=== PATIENT | male | born 1955 | race Caucasian/White ===

== ENCOUNTER 2024-07-30 07:04 | Emergency (ER) | payer BC, SELFPAY ==
[2024-07-30 08:53] LABS: Specific Gravity 1.023 (1.005-1.030); Sqamous Epithelial <5 /HPF (None Seen); Urine Bacteria None Seen /HPF (<20); Urine Bilirubin NEGATIVE (Negative); Urine Blood Negative (Negative); Urine Clarity Clear (Clear); Urine Color Yellow (Yellow); Urine Culture Reflex Order NOT NEEDED; Urine Glucose NEGATIVE (Negative); Urine Ketones NEGATIVE (Negative); Urine Microscopic Reflex YN ORDER UMIC; Urine Mucus Slight /HPF (None Seen); Urine Nitrite NEGATIVE (Negative); Urine Protein TRACE (Negative); Urine RBC None Seen /HPF (None Seen); Urine Urobilinogen 1+ (Normal); Urine WBC <5 /HPF (<5)
--- NOTE | 2024-07-30 08:55 | RAD REPORT ---
EXAMINATION: ONE VIEW CHEST XR CLINICAL INDICATION: Male, 69 years old.,PAIN TECHNIQUE: Frontal chest projection is submitted. Examination is limited by patient positioning and t echnique. COMPARISON: 08/21/2019 FINDINGS: The lungs are diffusely emphysematous but grossly clear. No pneumothorax or sizable effusion. The he art is normal in size. Mediastinal contours are unremarkable. IMPRESSION: No acute intrathoracic abnormalities.
[2024-07-30] MEDS ORDERED: NA CHLORIDE 0.9% 1,000 ML ONE (09:06)
[2024-07-30 09:10] LABS: PT Prothrombin Time 11.8 SECONDS (10.0-13.0); Protime INR 1.04
[2024-07-30 09:15] LABS: Albumin 2.8 g/dL (3.4-5.0); Albumin/Globulin Ratio 0.5 (1.1-1.8); Anion Gap 11.4 mEq/L (5.0-15.0); Bilirubin Direct 0.2 mg/dL (0-0.2); Bilirubin Indirect, Calculated 0.3 mg/dL (0.2-0.8); Bilirubin Total 0.5 mg/dL (0.2-1.0); Globulin 5.5 g/dL (2.3-3.5); Magnesium 1.9 mg/dL (1.6-2.4); Potassium 4.4 mEq/L (3.5-5.1); Protein, Total 8.3 g/dL (6.4-8.2); Troponin High Sensitivity 40.3 pg/mL (<58.9)
[2024-07-30 09:20] LABS: Absolute Eosinophils 0.1 K/uL (0-0.5); Absolute Lymphocytes (CBC) 2.2 K/uL (0.7-4.9); Absolute Monocytes 14.8 K/uL (0.1-1.3); Absolute Neutrophil 2.2 K/uL (1.8-8.0); Basophils % 0.1 % (0-1.3); Eosinophils % 0.3 % (0-4.4); Hematocrit 28.6 % (39.6-49.0); Hemoglobin 9.4 g/dL (13.6-17.9); Lymphocytes % 11.4 % (15.3-44.8); MCH 23.1 pg (27.0-35.0); MCHC 32.8 g/dL (32.0-36.0); MCV 70.5 fL (80-100); MPV 6.2 fL (7.6-11.3); Monocytes % 76.6 % (3.3-12.3); Neutrophils % 11.6 % (41.7-73.7); Nucleated RBC Absolute Count 0.1 (0-0); Nucleated Red Blood Cells % 0.5 % (0-0); Platelets 153 thou/uL (152-406); RBC Red Blood Cell Count 4.05 M/uL (4.33-5.43); Red Cell Distribution Width 21.4 % (12.1-15.2)
[2024-07-30 10:08] LABS: Atypical Lymphocytes 87 %; Differential Total Cells Count 100; Lymphocytes 3 % (15-42); Segmented Neutrophils 10 % (40-80)
[2024-07-30 10:09] LABS: Anisocytosis 1+; Blood Morphology Comment NOTED (NOT SEEN); Hypochromasia 1+; Microcytosis 2+; Ovalocytes 1+; Platelet Estimate ADEQ
--- NOTE | 2024-07-30 10:30 | RAD REPORT ---
EXAMINATION: CT Abdomen Pelvis W Contrast CLINICAL INDICATION: Male, 69 years old. ABD PAIN TECHNIQUE: CT abdomen and pelvis was performed, after the administration of IV contrast, as per depar tment protocol. Axial, sagittal and coronal reconstructions were obtained. One or more of the following dose reduction techniques were used: Automated exposure control, adjustment of the mA and k V according to patient size, and iterative reconstruction. Unless otherwise specified, incidental findings do not require dedicated imaging follow-up. COMPARISON: 08/08/2016 FINDINGS: LOWER CHEST: The visualized lung bases are clear. LIVER: Normal in size and contour. No focal lesion. BILIARY SYSTEM: No suspicious abnormalities. SPLEEN: Marked splenic enlargement since the prior exam, measuring up to 31 cm in long axis. Wedge-sh aped subcapsular region of hypoattenuation near the inferior pole measuring 6.9 x 6.1 cm, may represent a region of infarct. Marked mass effect upon the adjacent bowel, with displacement of the l eft kidney anterior to the aorta. PANCREAS: No mass, ductal dilation, or geovanny-pancreatic fluid. ADRENALS: Normal; no mass. KIDNEYS: 1-2 mm right superior pole nonobstructing calculus. Mass effect upon the left kidney as abov e. Normal size and contour otherwise. No hydronephrosis. URINARY BLADDER: Unremarkable. GASTROINTESTINAL TRACT: No evidence of free air, bowel obstruction or abscess. Mild free fluid alba g the left lower quadrant and pelvis. APPENDIX: Normal appendix. LYMPH NODES: No lymphadenopathy. MUSCULOSKELETAL: Grade 1 spondylolisthesis at L4-5. No other acute or suspicious osseous abnormality. ADDITIONAL FINDINGS: None. IMPRESSION: Marked splenomegaly measuring up to 31 cm in long axis. Wedge-shaped subcapsular 6.9 cm region of hyp oattenuation near the lower pole, suggesting a region of infarct. Mild free left lower quadrant and pelvic ascites. Nonobstructing 1-2 mm right superior pole renal calculus.
--- NOTE | 2024-07-30 10:48 | EDPHYS ---
Physician Documentation [facility] Name: Eugenia Méndez Age: 69 yrs Sex: Male : 1955 Arrival Date: 07/30/2024 Time: 07:04 Bed DX4 Private MD: ED Physician Laith Heaton HPI: 07/30 07:58 This 69 yrs old Male presents to ER via Ambulatory with complaints of SIDE quique PAIN. 07:58 The patient presents with abdominal pain in the left lower quadrant, abdominal quique distention in the epigastric area, in the upper abdomen. Onset: The symptoms/episode began/occurred 2 day(s) ago. The symptoms do not radiate. Associated signs and symptoms: none. The symptoms are described as crampy, dull. Modifying factors: The symptoms are alleviated by nothing, the symptoms are aggravated by movement, pressure. Severity of pain: At its worst the pain was moderate in the emergency department the pain is unchanged. The patient has not experienced similar symptoms in the past. Historical: - Allergies: 07:16 No Known Allergies; ll1 - PMHx: 07:16 Chronic obstructive lung disease; Diabetes mellitus; A fib; ll1 - PSHx: 07:17 testicular CA with removal; ll1 - Immunization history:: Adult Immunizations. - Infectious Disease History:: Denies. - Social history:: Smoking status: Patient reports the use of cigarette tobacco products, smokes .25 packs per day. ROS: 07:58 Constitutional: Negative for fever, chills, and weight loss, Eyes: Negative for injury, quique pain, redness, and discharge, ENT: Negative for injury, pain, and discharge, Neck: Negative for injury, pain, and swelling, Cardiovascular: Negative for chest pain, palpitations, and edema, Respiratory: Negative for shortness of breath, cough, wheezing, and pleuritic chest pain, Back: Negative for injury and pain, : Negative for injury, bleeding, discharge, and swelling, MS/Extremity: Negative for injury and deformity, Skin: Negative for injury, rash, and discoloration, Neuro: Negative for headache, weakness, numbness, tingling, and seizure, 07:58 Abdomen/GI: Positive for abdominal pain, of the left lower quadrant, Exam: 07:58 Constitutional: This is a well developed, well nourished patient who is awake, alert, quique and in no acute distress. Head/Face: Normocephalic, atraumatic. Eyes: Pupils equal round and reactive to light, extra-ocular motions intact. Lids and lashes normal. Conjunctiva and sclera are non-icteric and not injected. Cornea within normal limits. Periorbital areas with no swelling, redness, or edema. ENT: Nares patent. No nasal discharge, no septal abnormalities noted. Tympanic membranes are normal and external auditory canals are clear. Oropharynx with no redness, swelling, or masses, exudates, or evidence of obstruction, uvula midline. Mucous membranes moist. Neck: Trachea midline, no thyromegaly or masses palpated, and no cervical lymphadenopathy. Supple, full range of motion without nuchal rigidity, or vertebral point tenderness. No Meningismus. Chest/axilla: Normal chest wall appearance and motion. Nontender with no deformity. No lesions are appreciated. Cardiovascular: Regular rate and rhythm with a normal S1 and S2. No gallops, murmurs, or rubs. Normal PMI, no JVD. No pulse deficits. Respiratory: Lungs have equal breath sounds bilaterally, clear to auscultation and percussion. No rales, rhonchi or wheezes noted. No increased work of breathing, no retractions or nasal flaring. Back: No spinal tenderness. No costovertebral tenderness. Full range of motion. Male : Normal genitalia with no discharge or lesions. Skin: Warm, dry with normal turgor. Normal color with no rashes, no lesions, and no evidence of cellulitis. MS/ Extremity: Pulses equal, no cyanosis. Neurovascular intact. Full, normal range of motion., bilateral aka Neuro: Awake and alert, GCS 15, oriented to person, place, time, and situation. Cranial nerves II-XII grossly intact. Motor strength 5/5 in all extremities. Sensory grossly intact. Cerebellar exam normal. Normal gait. Psych: Awake, alert, with orientation to person, place and time. Behavior, mood, and affect are within normal limits. 07:58 Abdomen/GI: Inspection: distension, that is mild, Bowel sounds: normal, in all quadrants, Palpation: moderate abdominal tenderness, in the left lower quadrant, Liver: no appreciated palpable abnormalities, Hernia: not appreciated, Vital Signs: 07:18 BP 115 / 81; Pulse 99; Resp 17; Pulse Ox 99% ; Weight 68.95 kg; Height 6 ft. 1 in. ; ll1 Pain 8/10; 13:46 BP 121 / 71; Pulse 89; Resp 18; Temp 98; Pulse Ox 98% ; ll1 07:18 Body Mass Index 20.05 (68.95 kg, 185.42 cm) ll1 07:18 Pain Scale: Adult ll1 MDM: 07:13 Medical Screening Exam initiated quique 08:00 Differential diagnosis: bowel obstruction, diverticulitis, gastritis, non-specific abd quique pain, pancreatitis, Ureterolithiasis. Data reviewed: vital signs, nurses notes, lab test result(s), EKG, radiologic studies, CT scan, plain films. Consideration of Admission/Observation Patient was admitted/placed on observation. Escalation of care including admission/observation considered. I considered the following discharge prescriptions or medication management in the emergency department Medications were administered in the Emergency Department. See MAR. Independent interpretation of the following test(s) in the Emergency Department EKG: See my EKG interpretation above. Test considered but Not performed: Ultrasound no abd usg. Care significantly affected by the following chronic conditions: Diabetes, Chronic Obstructive Pulmonary Disease, a fib. 07/30 07:54 Order name: Basic Metabolic Panel; Complete Time: 10:45 quique 07/30 07:54 Order name: CBC with Diff; Complete Time: 10:45 quique 07/30 07:54 Order name: LFT's; Complete Time: 10:45 quique 07/30 07:54 Order name: Magnesium; Complete Time: 10:45 quique 07/30 07:54 Order name: NT PRO-BNP; Complete Time: 10:45 quique 07/30 07:54 Order name: PT-INR; Complete Time: 10:45 quique 07/30 07:54 Order name: Troponin HS; Complete Time: 10:45 quique 07/30 07:54 Order name: Urinalysis w/ reflexes; Complete Time: 10:45 quique 07/30 07:54 Order name: Lipase; Complete Time: 10:45 quique 07/30 10:09 Order name: Manual Differential; Complete Time: 10:45 EDMS 07/30 07:54 Order name: XRAY Chest (1 view); Complete Time: 10:45 quique 07/30 07:54 Order name: CT Abd/Pelvis - IV Contrast Only; Complete Time: 10:45 quique 07/30 07:54 Order name: EKG; Complete Time: 07:55 quique 07/30 07:54 Order name: EKG - Nurse/Tech; Complete Time: 08:46 quique 07/30 07:54 Order name: IV Saline Lock; Complete Time: 08:37 quique 07/30 07:54 Order name: Labs collected and sent; Complete Time: 08:37 quique Administered Medications: 09:15 Drug: NS 0.9% IV 1000 ml IV at 1000 ml once; to be given as a bolus over 60 minutes ll1 Route: IV; Rate: 1000 ml; Site: right antecubital; 13:46 Follow up: Response: No adverse reaction; IV Status: Completed infusion; IV Intake: ll1 1000ml 12:31 Drug: morphine IVP or IV 2 mg IVP once over 4 mins Route: IVP; Infused Over: 4 mins; ld1 Site: right antecubital; 13:47 Follow up: Response: No adverse reaction; Pain is decreased; RASS: Alert and Calm (0) ll1 12:31 Drug: Ondansetron IVP 4 mg IVP once; over 2 minutes Route: IVP; Site: right antecubital;ld1 13:47 Follow up: Response: No adverse reaction; Nausea is decreased ll1 Disposition Summary: 07/30/24 10:48 Transfer Ordered Notes: Reason: Higher level of care quique Condition: Fair quique Problem: new quique Symptoms: have improved quique Transfer Location: [facility]-System(07/30/24 11:37) quique Accepting Physician: to medicine(07/30/24 13:47) ll1 Diagnosis - Abdominal pain, Generalized quique - Elevated white blood cell count quique - 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 EDMS EDMS 07:55 07:54 CBC+H.LAB.BRZ ordered. EDMS EDMS 07:55 07:54 HEPATIC FUNCTION+C.LAB.BRZ ordered. EDMS EDMS 07:55 07:54 MAGNESIUM+C.LAB.BRZ ordered. EDMS EDMS 07:55 07:54 PROBNP+C.LAB.BRZ ordered. EDMS EDMS 07:55 07:54 PROTIME (+INR)+COAG.LAB.BRZ ordered. EDMS EDMS 07:55 07:54 Troponin High Sensitivity+C.LAB.BRZ ordered. EDMS EDMS 07:55 07:54 Urinalysis+U.LAB.BRZ ordered. EDMS EDMS 07:55 07:54 LIPASE+C.LAB.BRZ ordered. EDMS EDMS 10:53 10:48 to medicine quique quique 11:37 10:48 [facility] quique quique 11:37 10:48 Splenomegaly, not elsewhere classified - 31 cm quique quique 11:37 10:53 to medicine quique quique 11:37 11:37 to medicine quique quique 13:47 11:37 to medicine [facility]1
--- NOTE | 2024-07-30 10:48 | ER ---
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 Slight dysuria with ll1 frequency noted. No fever. Coronavirus screen: Client denies travel out of the [place] in the last 14 days. At this time, the client does not indicate any symptoms associated with coronavirus-19. Ebola Screen: Patient denies travel to an Ebola-affected area in the 21 days before illness onset. Initial Sepsis Screen: Does the patient meet any 2 criteria? No. Patient's initial sepsis screen is negative. Does the patient have a suspected source of infection? No. Patient's initial sepsis screen is negative. Risk Assessment: Do you want to hurt yourself or someone else? Patient reports no desire to harm self or others. Onset of symptoms was July 28, 2024. 07:18 Method Of Arrival: Ambulatory ll1 07:18 Acuity: GIOVANNI 3 ll1 Triage Assessment: 07:18 General: Appears uncomfortable, Behavior is calm, cooperative, appropriate for age. ll1 Pain: Complains of pain in left lower quadrant Quality of pain is described as aching, crampy. GI: Reports lower abdominal pain. Historical: - Allergies: 07:16 No Known Allergies; ll1 - PMHx: 07:16 Chronic obstructive lung disease; Diabetes mellitus; A fib; ll1 - PSHx: 07:17 testicular CA with removal; ll1 - Immunization history:: Adult Immunizations. - Infectious Disease History:: Denies. - Social history:: Smoking status: Patient reports the use of cigarette tobacco products, smokes .25 packs per day. Screenin:35 [facility] ED Fall Risk Assessment (Adult) History of falling in the last 3 months, ll1 including since admission No falls in past 3 months (0 pts) Confusion or Disorientation No (0 pts) Intoxicated or Sedated No (0 pts) Impaired Gait Yes (1 pt) Mobility Assist Device Used Yes (1 pt) Altered Elimination No (0 pt) Score/Fall Risk Level 0 - 2 = Low Risk Maintained a safe environment, Hourly rounding (assess needs \T\ fall precautionary measures) done. Abuse screen: Denies threats or abuse. Nutritional screening: No deficits noted. Tuberculosis screening: No symptoms or risk factors identified. Assessment: 13:46 Reassessment: No changes from previously documented assessment. Patient and/or family ll1 updated on plan of care and expected duration. Pain level reassessed. Vital Signs: 07:18 BP 115 / 81; Pulse 99; Resp 17; Pulse Ox 99% ; Weight 68.95 kg; Height 6 ft. 1 in. ; ll1 Pain 8/10; 13:46 BP 121 / 71; Pulse 89; Resp 18; Temp 98; Pulse Ox 98% ; ll1 07:18 Body Mass Index 20.05 (68.95 kg, 185.42 cm) ll1 07:18 Pain Scale: Adult ll1 ED Course: 07:13 Patient arrived in ED. gm2 07:13 Laith Heaton MD is Attending Physician. quique 07:19 Triage completed. ll1 07:19 Arm band placed on. ll1 08:16 XRAY Chest (1 view) In Process Unspecified. EDMS 08:37 Lipase Sent. bc6 08:37 Basic Metabolic Panel Sent. bc6 08:37 CBC with Diff Sent. bc6 08:37 LFT's Sent. bc6 08:37 Magnesium Sent. bc6 08:37 NT PRO-BNP Sent. bc6 08:37 PT-INR Sent. bc6 08:37 Troponin HS Sent. bc6 08:37 Initial lab(s) drawn, by ma, sent to lab. Inserted saline lock: 20 gauge in right bc6 antecubital area, using aseptic technique. Blood collected. Flushed with 10 mL NS. 08:46 Urinalysis w/ reflexes Sent. bc6 09:43 CT Abd/Pelvis - IV Contrast Only In Process Unspecified. EDMS 12:36 Patient has correct armband on for positive identification. Provided Education on: ER ll1 procedures and process. 12:36 No provider procedures requiring assistance completed. Patient transferred, IV remains ll1 in place. Administered Medications: 09:15 Drug: NS 0.9% IV 1000 ml IV at 1000 ml once; to be given as a bolus over 60 minutes ll1 Route: IV; Rate: 1000 ml; Site: right antecubital; 13:46 Follow up: Response: No adverse reaction; IV Status: Completed infusion; IV Intake: ll1 1000ml 12:31 Drug: morphine IVP or IV 2 mg IVP once over 4 mins Route: IVP; Infused Over: 4 mins; ld1 Site: right antecubital; 13:47 Follow up: Response: No adverse reaction; Pain is decreased; RASS: Alert and Calm (0) ll1 12:31 Drug: Ondansetron IVP 4 mg IVP once; over 2 minutes Route: IVP; Site: right antecubital;ld1 13:47 Follow up: Response: No adverse reaction; Nausea is decreased ll1 Medication: 12:36 VIS not applicable for this client. ll1 Intake: 13:46 IV: 1000ml; Total: 1000ml. ll1 Outcome: 10:48 ER care complete, transfer ordered by MD. lei 12:34 Transferred by ground EMS to [facility], Transfer form completed. ll1 Note: report called to Lillian Rodriguez RN at [facility] 9th floor 12:34 Condition: stable 12:34 Instructed on the need for transfer, 13:47 Patient left the ED. 1 Signatures: Dispatcher [employer] Laith Means MD MD cha Lewis, Lynsay RN RN ll1 Mel Youssef RN RN ld1 Mely Peters6 Ginette Tsang 2
[2024-07-30] MEDS ORDERED: ONDANSETRON 4 MG/2 ML VIAL ONE (12:24)
[2024-07-30] MEDS ORDERED: MORPHINE 4 MG/ML SYR ONE (12:25)
[2024-07-30 14:07] VITALS: BP 121/71; TEMP 98; O2SAT 98
== END 2024-07-30 13:47 | disposition short-term general hospital (02) ==
LOC: ER 07:04
DX: R10.84 Generalized abdominal pain (principal); D72.829 Elevated white blood cell count, unspecified; D63.8 Anemia in other chronic diseases classified elsewhere; C83.30 Diffuse large B-cell lymphoma, unspecified site; D73.5 Infarction of spleen; R16.1 Splenomegaly, not elsewhere classified
CPT/HCPCS: 36415; 71045; 74177; 80048; 80076; 81001; 83690; 83735; 83880; 84484; 85025; 85610; 93005; J2405; J7030; Q9967